=== PATIENT | male | born 1985 | race American Indian/Alaskan Native ===

== ENCOUNTER 2021-06-18 22:21 | Emergency (ER) | payer MEDICAID, OTHER | END 2021-06-18 22:58 | disposition left against medical advice (07) | LOC: DL.ED 22:21 | DX: Z53.21 Procedure and treatment not carried out due to patient leaving prior to being seen by health care provider (principal) ==

== ENCOUNTER 2023-01-28 16:48 | Emergency (ER) | payer MEDICAID, OTHER ==
[2023-01-28 17:34] VITALS: BP 125/79; PULSE 128
== END 2023-01-28 17:45 ==
LOC: DL.ED 16:48
DX: F10.920 Alcohol use, unspecified with intoxication, uncomplicated (principal)
CPT/HCPCS: 99282; 99284